=== PATIENT | male | born 2000 | race Caucasian/White ===

== ENCOUNTER 2020-12-16 17:03 | Outpatient (CLI) | payer BC, SELFPAY ==
--- NOTE | ~2020-12-16 | US_ITS ---
US scrotum doppler DATE: 12/16/2020 17:34 INDICATION: Scrotal pain TECHNIQUE: Real-time and color flow imaging and Doppler analysis COMPARISON: None FINDINGS: Right testicle measures 4.1 x 1.8 x 3.4 cm. Left testicle measures 4.3 x 2.2 x 3.7 cm. No t esticular mass lesion or torsion is detected. There is symmetric echotexture of the testicles and sym metric color flow signal and Doppler flow. There is an approximately 8 mm epididymal head cyst on the left. No hydrocele or varicocele demonstrated. IMPRESSION: 8 mm cyst of the head of the left epididymis; otherwise negative Reviewed, dictated and finalized at [facility] Reviewed, dictated and finalized at [facility].
== END 2020-12-16 17:04 | disposition home or self-care (01) ==
PROVIDERS: PCP Family Medicine; Visit Provider Physician Assistant
DX: N50.3 Cyst of epididymis (principal)
CPT/HCPCS: 76870; 93976

== ENCOUNTER 2021-08-06 14:52 | Emergency (ER) | payer OTHER, SELFPAY ==
--- NOTE | ~2021-08-06 | XR_ITS ---
EXAMINATION: XR ankle LT min 3V EXAM DATE: 08/06/2021 17:03 INDICATION: Injury,Pain Laterally And Medially,Swelling TECHNIQUE: Left ankle frontal, lateral and oblique projections obtained and reviewed. There is no pr ior study for comparison. FINDINGS: The left ankle mortise appears intact. There are no acute fractures or dislocations ident ified. There is no subcutaneous gas. There is soft tissue swelling over the ankle anterolaterally. There are no radiopaque foreign bodies. IMPRESSION: 1. XR ankle LT min 3V exam without acute osseous findings. 2. Soft tissue swelling. Reviewed, dictated and finalized at [facility]
[2021-08-06 15:21] VITALS: BP 198/78; PULSE 117; RESP 14; TEMP 37.3; O2SAT 100
--- NOTE | 2021-08-06 17:24 | ED.LOWEXIN ---
HPI - Extremity Injury (Lower) General Chief Complaint: Extremity Injury, Lower Stated Complaint: L ANKLE INJURY Time Seen by Provider: 08/06/21 17:10 Source: patient Mode of arrival: ambulatory Limitations: no limitations History of Present Illness HPI Narrative: This is a 21-year-old male that presents to the emergency department for left ankle injury sustained just prior to arrival. Reports he was jumping [place] the trampoline park and rolled his left ankle. Reports swelling and pain to the area. Denies decreased range of motion or numbness. Related Data Home Medications Medication Instructions Recorded Confirmed No Home Medications 12/16/19 08/06/21 Allergies Allergy/AdvReac Type Severity Reaction Status Date / Time No Known Allergies Allergy Unknown Verified 08/06/21 16:52 Review of Systems Review of Systems: CONSTITUTIONAL: Denies fever MUSCULOSKELETAL: Reports joint pain, and myalgia. NEUROLOGIC: Denies numbness All systems reviewed & are unremarkable except as noted in HPI and below PMFSH Past Medical History Medical History (Updated 08/06/21 @ 17:31 by Tessa Nichols PA-C) No active medical problems Family History Family History (Updated 12/16/19 @ 15:52 by Dewey Anton MD) Father Hypertension Social History Social History (Updated 12/16/20 @ 15:10 by Sunita Cardona) Smoking status: Never smoker Alcohol intake: current Drinks per week: 30 Substance use: current Substance use type: marijuana Gender identity (if verbalized by the patient): Male Exam Narrative: GENERAL: Well-appearing, well-nourished, and in no acute distress. HEAD: Normocephalic, atraumatic. EYES: EOMI. EXTREMITIES: Normal range of motion. No obvious deformity. Mild edema about the left lateral malleoli. Normal DP pulses. Normal sensation SKIN: Warm, dry, no rash. NEURO: No focal deficits. Alert and oriented x3. PSYCH: Normal mood and affect Course Vital Signs Vital signs: Vital Signs Temperature 99.2 F 08/06/21 15:21 Pulse Rate 117 H 08/06/21 15:21 Respiratory Rate 14 08/06/21 15:21 Blood Pressure 198/78 H 08/06/21 15:21 Pulse Oximetry 100 08/06/21 15:21 Temperature 99.2 F 08/06/21 15:21 Pulse Rate 117 H 08/06/21 15:21 Respiratory Rate 14 08/06/21 15:21 Blood Pressure 198/78 H 08/06/21 15:21 Pulse Oximetry 100 08/06/21 15:21 MDM - Extremity Injury (Lower) MDM Narrative Medical decision making narrative: Patient presents to the emergency department for left ankle injury sustained just prior to arrival. Reports a twisting injury while jumping on trampoline. Left ankle x-ray is without acute osseous abnormalities. Patient was instructed in care of ankle sprain. He is to follow-up with primary care doctor. He was given warnings to return to the ER Imaging Data Radiologist's impression: ITS Impressions Ankle X-Ray 08/06/21 17:06 IMPRESSION: 1. XR ankle LT min 3V exam without acute osseous findings. 2. Soft tissue swelling. Critical Care Time Critical Care Time Critical Care Time: No Discharge Plan Discharge Clinical Impression: Ankle sprain and strain Patient Disposition: Home, Self-Care Condition: Stable Instructions: Ankle Sprain (ED) Additional Instructions: Return to the emergency department if you experience fever, redness and swelling of your leg, numbness, or any other symptoms that are concerning to you Wear ALEXSANDRA wrap and use crutches. No weight on the affected leg until able to bear weight without pain. Ice and elevate extremity. Pain medication as needed and directed. Follow up with your doctor for further care. Prescriptions: No Action No Home Medications RF: 0 Follow-up/Referrals: Dewey Anton MD [Primary Care Provider] - 3 Days
== END 2021-08-06 18:01 | disposition home or self-care (01) ==
PROVIDERS: Emergency Provider Emergency Medicine; PCP Family Medicine
DX: S93.402A Sprain of unspecified ligament of left ankle, initial encounter (principal); S96.912A Strain of unspecified muscle and tendon at ankle and foot level, left foot, initial encounter; X50.9XXA Other and unspecified overexertion or strenuous movements or postures, initial encounter; Y93.44 Activity, trampolining
CPT/HCPCS: 73610; 96372; 99283

== ENCOUNTER 2021-11-02 10:27 | Emergency (ER) | payer OTHER, SELFPAY ==
[2021-11-02 10:38] VITALS: BP 141/78; PULSE 90; RESP 18; TEMP 37.1; O2SAT 100
--- NOTE | 2021-11-02 10:58 | ED.MALEGU ---
HPI - Male Genitourinary General Stated complaint: Pain and swelling in groin Time Seen by Provider: 11/02/21 10:47 Source: patient and RN notes reviewed Mode of arrival: ambulatory Limitations: no limitations History of Present Illness HPI Narrative: Patient presents today complaining of swelling and tenderness to the right groin area since yesterday. Denies any heavy lifting in the past couple of days at work. States that for the past 3 days he has had a boil to his right inner thigh that he popped with a needle yesterday that has since started to resolve. Currently rates his pain 5/10 with movement, but is pain-free at rest. Denies fever. He has not tried any medication for symptoms prior to arrival. Denies urinary symptoms. Denies concerns for sexually transmitted infections. Denies testicular pain, penile pain, urethral discharge. Related Data Allergies Allergy/AdvReac Type Severity Reaction Status Date / Time No Known Allergies Allergy Unknown Verified 11/02/21 10:58 Review of Systems Review of Systems: CONSTITUTIONAL: Denies body aches, fever, chills, or sweats. EYES: Denies visual changes, redness, or discharge. ENT: Denies rhinorrhea, congestion, sore throat, or otalgia. CARDIOVASCULAR: Denies chest pain, palpitations, or edema. RESPIRATORY: Denies cough or dyspnea. GASTROINTESTINAL: Denies abdominal pain, nausea, vomiting, or diarrhea. GENITOURINARY: Denies dysuria or hematuria. SKIN: Denies rash, itching, or wounds. MUSCULOSKELETAL: Denies back pain, joint pain, or myalgia.+ Right groin pain and swelling NEUROLOGIC: Denies headache, numbness, tingling, or weakness. PSYCH: Denies depression or anxiety. COUNT INCLUDES THE [facility] Past Medical History Medical History No active medical problems Family History Family History Father Hypertension Social History Social History Smoking status: Never smoker Second hand tobacco smoke exposure: No Alcohol intake: current Drinks per week: 30 Substance use: current Substance use type: marijuana Gender identity (if verbalized by the patient): Male Sexual Orientation (if Verbalized by the Patient): Straight or Heterosexual Comments At time of signature, I have reviewed and agree with nursing past medical, surgical, social and family history unless otherwise noted. Please see nursing chart for further information. There is no relevant family history pertinent to the presenting complaint Exam Narrative: GENERAL: Well-appearing, well-nourished, and in no acute distress. HEAD: Normocephalic, atraumatic. EYES: EOMI. No redness or drainage. Conjunctivae normal. ENT: Mucous membranes pink and moist. NECK: Normal AROM. CHEST: No respiratory distress. EXTREMITIES: Right upper anterior leg: Tenderness along the groin fold, scant edema and faint erythema to the most proximal upper leg. Patient has a an approximate 1 cm round scabbed lesion to the inner thigh. No fluctuance noted. This area and the surrounding skin is mildly tender to palpation. No induration. SKIN: Warm, dry, no rash. Capillary refill normal. Normal skin turgor. NEURO: No focal deficits. Alert and oriented x3. Gait steady. PSYCH: Normal affect. No signs of depression or anxiety. Course Course Level of Care: Express Care Visit Vital Signs Vital signs: Vital Signs Temperature 98.7 F 11/02/21 10:38 Pulse Rate 90 11/02/21 10:38 Respiratory Rate 18 11/02/21 10:38 Blood Pressure 141/78 H 11/02/21 10:38 Pulse Oximetry 100 11/02/21 10:38 Temperature 98.7 F 11/02/21 10:38 Pulse Rate 90 11/02/21 10:38 Respiratory Rate 18 11/02/21 10:38 Blood Pressure 141/78 H 11/02/21 10:38 Pulse Oximetry 100 11/02/21 10:38 Reviewed. Pt has been instructed to follow up with his PCP regarding his elevated
== END 2021-11-02 11:10 | disposition home or self-care (01) ==
PROVIDERS: Emergency Provider Nurse Practitioner; PCP Family Medicine
DX: L02.415 Cutaneous abscess of right lower limb (principal); L03.115 Cellulitis of right lower limb
CPT/HCPCS: 99213; G0463